=== PATIENT | male | born 1965 | race Caucasian/White ===

== ENCOUNTER 2020-04-01 09:18 | Emergency (ER) | payer OTHER ==
[2020-04-01 10:00] LABS: Prothrombin Time 13.2 sec (12.0-14.7)
[2020-04-01 10:05] LABS: #Basophils 0.1 thou/uL (0.0-0.2); #Eosinphils 0.1 thou/uL (0.0-0.7); #Lymphocytes 1.2 thou/uL (1.20-3.40); #Monocytes 0.5 thou/uL (0.11-0.59); #Neutrophils 4.7 thou/uL (1.40-6.50); %Basophils 0.9 % (0.0-1.0); %Eosinophils 2.1 % (0.0-10.0); %Lymphocytes 18.3 % (21.0-51.0); %Monocytes 7.8 % (0.0-10.0); %Neutrophils 70.9 % (42.0-75.0); Hemoglobin 14.1 g/dL (14.0-18.0); Mean Corpuscular HGB CONC 31.7 g/dL (32.0-36.0); Mean Corpuscular Hemoglobin 33.7 pg (27.0-31.0); Mean Platelet Volume 7.5 fL (7.4-10.4); Platelet Count 349 thou/uL (130-400); RBC Distribution Width 13.4 % (11.5-14.5); Red Blood Cell (RBC) Count 4.18 mill/uL (4.70-6.10); White Blood Cell (WBC) Count 6.7 thou/uL (4.8-10.8)
[2020-04-01 10:09] LABS: Acetaminophen Less than 6.0 mcg/mL (10.0-30.0); Alcohol Less than 10 mg/dL (Less than 10); Salicylate Less than 8.0 mg/dL (15.0-30.0)
[2020-04-01 10:11] LABS: ALT (SGPT) 14 U/L (8-55); AST (SGOT) 17 U/L (5-34); Albumin 4.1 g/dL (3.5-5.0); Alkaline Phosphatase 131 U/L (40-110); Anion Gap 17 mmol/L (10-20); BUN (Urea Nitrogen) 8 mg/dL (8.4-25.7); Calc. Creatinine Clearance 0 mL/min (70-130); Calcium 9.1 mg/dL (7.8-10.44); Carbon Dioxide 18 mmol/L (22-29); Chloride 108 mmol/L (98-107); Estimated GFR-MDRD Greater than 90; Globulin 3.4 g/dL (2.4-3.5); Glucose 111 mg/dL (70-105); Potassium 3.5 mmol/L (3.5-5.1); Protein, Total 7.5 g/dL (6.0-8.3); Sodium 139 mmol/L (136-145)
[2020-04-01 10:14] LABS: MDiff Complete? YES; Macrocytosis SLIGHT = 6-15 cells (100X) (0-5/hpf); Platelet Morphology Comment Appears Adequate
[2020-04-01] MEDS ORDERED: Ibuprofen 200 MG TAB ONE (11:31)
[2020-04-01 11:45] LABS: Bilirubin Moderate (Negative); Blood, Urine Trace (Negative); Clarity Slightly Cloudy (Clear); Glucose, Urine (Dipstick) 100 mg/dL (Negative); Ketone, Urine 40 mg/dL (Negative); Leukocyte Negative (Negative); Nitrite Positive (Negative); Protein, Urine (Dipstick) 30 mg/dL (Neg-Trace); pH, Urine 5.5 (5.0-9.0)
[2020-04-01 11:47] LABS: Specific Gravity, Urine 1.028 (1.002-1.036)
[2020-04-01 11:49] LABS: Cocaine Metabolite Screen Not Detected (NotDetected); Methamphetamine Not Detected (NotDetected); Phencyclidine (PCP) Not Detected (NotDetected); THC/Cannabinoid Screen Detected (NotDetected)
[2020-04-01 11:50] LABS: Amphetamine Not Detected (NotDetected); Barbiturates Screen Not Detected (NotDetected); Benzodiazepine Screen Detected (NotDetected); Medtox Control Line Valid? VALID (VALID); Methadone Not Detected (NotDetected); Opiate Screen Not Detected (NotDetected); Oxycodone Screen Not Detected (NotDetected); Tricyclic Screen Detected (NotDetected)
[2020-04-01 11:53] LABS: RBC/HPF 0-3 HPF (0-3); WBC/HPF 0-3 HPF (0-3)
[2020-04-01 11:54] LABS: Bacteria/HPF 1+ HPF (None Seen); Squamous Epithelial 0-3 HPF (0-3)
[2020-04-01 11:55] LABS: Mucous/LPF 3+ LPF (<2+)
--- NOTE | 2020-04-01 16:48 | CT ---
CT OF THE BRAIN WITHOUT CONTRAST: 04/01/[address] shows normal sized ventricles with no shift. No intracranial bleeding, mass or extra -axial hematoma was seen. There is no sign of stroke or edema. The skull appears intact and the visible paranasal sinuses are clear. There are, however, several fra ctures through the left zygomatic arch with very slight depression. Nevertheless, I do not really see any soft tissue swelling around this, so this may not be a new finding. Correlate with clinical exam . IMPRESSION: 1. No acute intracranial findings. 2. Fractures of the left zygomatic arch, age indeterminate. Findings discussed with Dr. Singer at 10:22 on 04/01/20. POS: HOME
--- NOTE | 2020-04-01 17:06 | CT ---
CT OF THE CERVICAL SPINE 04/01/[address] of the cervical spine was done following trauma. The patient has had extensive vertebral fu sions. There is a posterior vertebral fusion of C1 through C4 and anterior cervical fusion of C4 thro ugh C6. There is resulting straightening of the cervical spine, as would be expected. There is disc s pace narrowing at all levels and probably fusion of the disc space at C4-C5 and C5-C6. The C1 to dens distance is normal and the soft tissues are normal in thickness. There is bilateral foraminal stenos is at all levels beginning at C3 and extending down to C6-C7. There is no remarkable central canal st enosis. Fine detail would require an MRI to tell if there was any impingement at any level. IMPRESSION: Extensive degenerative and postoperative change but no acute traumatic findings were appreciated. Preliminary report discussed with Dr. Singer at 10:22 on 04/01/20. POS: HOME
== END 2020-04-01 16:10 ==
LOC: BURERS 09:18
DX: S13.9XXA Sprain of joints and ligaments of unspecified parts of neck, initial encounter (principal); R45.851 Suicidal ideations; F17.210 Nicotine dependence, cigarettes, uncomplicated; W19.XXXA Unspecified fall, initial encounter
CPT/HCPCS: 36415; 70450; 72125; 80053; 80306; 80307; 81003; 81015; 85025; 85610